=== PATIENT | male | born 1960 | race Caucasian/White ===

== ENCOUNTER 2018-09-08 15:55 | Emergency (ER) | payer OTHER ==
[2018-09-08 16:18] VITALS: BP 161/80; PULSE 76; TEMP 98.6; BMI 33.0
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
== END 2018-09-08 17:18 | disposition home or self-care (01) ==
LOC: JERFT 15:55
DX: S09.90XA Unspecified injury of head, initial encounter (principal); R42 Dizziness and giddiness; J45.909 Unspecified asthma, uncomplicated
CPT/HCPCS: 70450-TC; 99281-25

== ENCOUNTER 2019-07-19 12:42 | Emergency (ER) | payer OTHER ==
[2019-07-19 12:52] VITALS: BP 163/72; PULSE 68; TEMP 97.8; BMI 29.1
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
== END 2019-07-19 15:18 | disposition home or self-care (01) ==
LOC: JERFT 12:42
DX: S16.1XXA Strain of muscle, fascia and tendon at neck level, initial encounter (principal); S39.012A Strain of muscle, fascia and tendon of lower back, initial encounter; S09.8XXA Other specified injuries of head, initial encounter; V59.49XA Driver of pick-up truck or van injured in collision with other motor vehicles in traffic accident, initial encounter; Y92.414 Local residential or business street as the place of occurrence of the external cause; Y93.89 Activity, other specified; Y99.8 Other external cause status; Z86.59 Personal history of other mental and behavioral disorders
CPT/HCPCS: 70450-TC; 72125-TC; 72131-TC; 99281-25

== ENCOUNTER 2020-10-13 13:34 | Emergency (ER) | payer OTHER | END 2020-10-13 14:34 | disposition home or self-care (01) | LOC: JVIRT 13:34 | DX: R68.83 Chills (without fever) (principal); Z11.52 Encounter for screening for COVID-19 | CPT/HCPCS: C9803; G2012-GT; U0003 ==

== ENCOUNTER 2020-10-15 20:47 | Emergency (ER) | payer OTHER ==
[2020-10-15 21:08] VITALS: BP 143/69; PULSE 68; TEMP 98; BMI 30.1
[2020-10-15 22:44] LABS: BASO % 0.6 % (0-2.0); EOS % 1.4 % (0-4.5); HEMOGLOBIN 13.8 GM/dL (11.7-16.9); LYMPH % 21.6 % (8-40); MCH 29.8 pg (25.7-33.7); MCHC 33.6 g/dl (32.0-35.9); MEAN CELL VOLUME 88.7 fl (80-96); MEAN PLT VOLUME 8.2 fl (7.5-11.1); MONO % 7.1 % (3.8-10.2); NEUT % 69.3 % (42.8-82.8); PLATELET COUNT 176 K/MM3 (134-434); RBC 4.62 M/mm3 (4.00-5.60); WHITE BLOOD COUNT 6.8 K/mm3 (4.0-10.0)
[2020-10-15 23:03] LABS: CHLORIDE 105 mmol/L (98-107); SODIUM 137 mmol/L (136-145)
[2020-10-15 23:05] LABS: CALCIUM 8.8 mg/dL (8.5-10.1)
[2020-10-15 23:06] LABS: ANION GAP 6 MMOL/L (8-16); BLOOD UREA NITROGEN 24.6 mg/dL (7-18); CO2 27 mmol/L (21-32); GLUCOSE,RANDOM 132 mg/dL (74-106); MAGNESIUM 1.8 mg/dL (1.8-2.4)
[2020-10-15 23:09] LABS: CREATININE 1.2 mg/dL (0.55-1.3); SGOT/AST 20 U/L (15-37); SGPT/ALT 31 U/L (13-61)
[2020-10-15 23:10] LABS: BILIRUBIN,TOTAL 0.3 mg/dL (0.2-1)
[2020-10-15 23:12] LABS: ALK PHOS 71 U/L (45-117)
[2020-10-15] MEDS ORDERED: LACTATED RINGERS SOLUTION 1000 ML INFUS.BAG IV ONE (23:19)
[2020-10-16] MEDS ORDERED: LIDOCAINE 5% TOPICAL PATCH TP ONE (01:50)
[2020-10-16] MEDS ORDERED: LIDOCAINE 5% TOPICAL PATCH ONE (02:01)
[2020-10-16] MEDS ORDERED: LIDOCAINE PATCH REMOVAL MC ONE (14:00)
== END 2020-10-16 03:28 | disposition home or self-care (01) ==
LOC: JER 20:47
DX: R20.2 Paresthesia of skin (principal)
CPT/HCPCS: 36415; 70450-TC; 71046-TC-FY; 80053; 82550; 82553; 83735; 84443; 84484; 85025; 93005; 93010; 99285-25

== ENCOUNTER 2020-11-28 04:15 | Day surgery (SDC) | payer OTHER ==
[2020-11-27 11:00] VITALS: BMI 30.2
[2020-11-28 14:11] VITALS: BP 170/80; PULSE 54; TEMP 98.4
== END 2020-11-28 14:11 | disposition home or self-care (01) ==
LOC: JASU-ENDO 04:15
PROVIDERS: ATTEND Internal Medicine Gastroenterology
PROC: 0DBN8ZX Excision of Sigmoid Colon, Via Natural or Artificial Opening Endoscopic, Diagnostic (ICD-10-PCS; principal; 2020-11-28 11:00)
DX: Z86.010 Personal history of colon polyps (principal); D12.5 Benign neoplasm of sigmoid colon; K64.8 Other hemorrhoids
CPT/HCPCS: 88305-TC

== ENCOUNTER 2021-03-17 06:05 | Observation (INO) | payer OTHER ==
[2021-03-17 08:19] LABS: EOS % 2.9 % (0-4.5); HEMATOCRIT 40.7 % (35.4-49); HEMOGLOBIN 13.6 GM/dL (11.7-16.9); LYMPH % 39.8 % (8-40); MCH 29.1 pg (25.7-33.7); MCHC 33.5 g/dl (32.0-35.9); MEAN CELL VOLUME 86.9 fl (80-96); MEAN PLT VOLUME 8.2 fl (7.5-11.1); MONO % 9.7 % (3.8-10.2); NEUT % 46.6 % (42.8-82.8); PLATELET COUNT 144 10^3/uL (134-434); RBC 4.68 M/mm3 (4.00-5.60); RDW 13.2 % (11.9-15.9); WHITE BLOOD COUNT 5.7 K/mm3 (4.0-10.0)
[2021-03-17 08:29] LABS: INR 0.87 (0.83-1.09); PROTHROMBIN TIME (PATIENT) 10.8 SEC (9.7-13.0)
[2021-03-17 08:31] LABS: ACTIVATED PTT 28.7 SECONDS (25.2-36.5)
[2021-03-17 08:39] LABS: CHLORIDE 108 mmol/L (98-107); SODIUM 138 mmol/L (136-145)
[2021-03-17 08:41] LABS: CALCIUM 8.7 mg/dL (8.5-10.1)
[2021-03-17 08:42] LABS: ALBUMIN 3.7 g/dl (3.4-5.0); ANION GAP 6 MMOL/L (8-16); BLOOD UREA NITROGEN 15.6 mg/dL (7-18); CO2 25 mmol/L (21-32); GLUCOSE,RANDOM 86 mg/dL (74-106)
[2021-03-17 08:45] LABS: CHOLESTEROL 212 mg/dL (50-200); SGOT/AST 31 U/L (15-37); SGPT/ALT 36 U/L (13-61); TRIGLYCERIDES 132 mg/dL (0-150)
[2021-03-17 08:46] LABS: BILIRUBIN,TOTAL 0.4 mg/dL (0.2-1); LDL CHOLESTEROL (ONLY SJRH) 122 mg/dL (5-100)
[2021-03-17 08:47] LABS: HDL CHOLESTEROL 47 mg/dL (40-60); TOT PROT 6.6 g/dl (6.4-8.2)
[2021-03-17 08:48] LABS: ALK PHOS 56 U/L (45-117)
[2021-03-17] MEDS ORDERED: ASPIRIN 81 MG CHEWABLE TABLETS PO ONE (09:07)
[2021-03-17] MEDS ORDERED: ASPIRIN 81 MG CHEWABLE TABLETS ONE (09:56)
[2021-03-17] MEDS ORDERED: ASPIRIN COATED 81 MG TABLET.EC PO SCH (10:00)
[2021-03-17] MEDS ORDERED: ACETAMINOPHEN 325 MG TABLET (FP) PO PRN (11:53)
[2021-03-17] MEDS ORDERED: ENOXAPARIN NA (PORCINE) 40 MG/0.4 ML DISP.SYRIN SQ ONE (12:03)
[2021-03-17] MEDS: ENOXAPARIN NA (PORCINE) 40 MG/0.4 ML DISP.SYRIN SQ SCH (12:06)
[2021-03-17 15:06] VITALS: BMI 30.7
[2021-03-17] MEDS: ATORVASTATIN CA 10 MG TABLET (FP) PO SCH (21:03)
[2021-03-18 08:17] LABS: BASO % 0.6 % (0-2.0); HEMATOCRIT 42.7 % (35.4-49); HEMOGLOBIN 14.3 GM/dL (11.7-16.9); LYMPH % 33.1 % (8-40); MCH 29.4 pg (25.7-33.7); MCHC 33.6 g/dl (32.0-35.9); MEAN CELL VOLUME 87.6 fl (80-96); MEAN PLT VOLUME 7.9 fl (7.5-11.1); MONO % 8.9 % (3.8-10.2); NEUT % 54.4 % (42.8-82.8); PLATELET COUNT 150 10^3/uL (134-434); RBC 4.88 M/mm3 (4.00-5.60); RDW 13.1 % (11.9-15.9); WHITE BLOOD COUNT 5.7 K/mm3 (4.0-10.0)
[2021-03-18 08:37] LABS: CHLORIDE 109 mmol/L (98-107); SODIUM 141 mmol/L (136-145)
[2021-03-18 08:39] LABS: ANION GAP 5 MMOL/L (8-16); BLOOD UREA NITROGEN 14.6 mg/dL (7-18); CALCIUM 8.6 mg/dL (8.5-10.1); CO2 27 mmol/L (21-32); GLUCOSE,RANDOM 86 mg/dL (74-106); MAGNESIUM 2.3 mg/dL (1.8-2.4)
[2021-03-18 08:43] LABS: CREATININE 0.9 mg/dL (0.55-1.3); PHOSPHOROUS 3.7 mg/dL (2.5-4.9)
[2021-03-18] MEDS: ASPIRIN 325 MG ENTERIC COATED TABLET (FP) PO SCH (09:01)
[2021-03-18] MEDS: SERTRALINE HCL 50 MG TABLET (FP) PO SCH (09:01)
[2021-03-18] MEDS: ENOXAPARIN NA (PORCINE) 40 MG/0.4 ML DISP.SYRIN SQ SCH (09:01)
[2021-03-18] MEDS ORDERED: DOCUSATE SODIUM 100 MG CAPSULE (FP) PO ONE (09:20)
[2021-03-18] MEDS ORDERED: BISACODYL 5 MG TABLET.DR (FP) PO PRN (09:21)
[2021-03-18] MEDS ORDERED: CYCLOBENZAPRINE HCL 10 MG TABLET (FP) PO SCH (10:00)
[2021-03-18] MEDS: POLYETHYLENE GLYCOL 3350 119 GM BTL PO SCH ×2 (11:44→21:28)
[2021-03-18] MEDS ORDERED: DIVALPROEX NA *ER* EXTEND REL 500 MG TABLET.SA (FP) PO ONE (12:30)
[2021-03-18] MEDS: PRAMIPEXOLE DIHYDROCHLORIDE 0.125 MG TABLET PO SCH ×2 (13:54→21:28)
[2021-03-18] MEDS: HYDROCHLOROTHIAZIDE 12.5 MG CAPSULE (FP) PO SCH (13:55)
[2021-03-18] MEDS ORDERED: PT OWN MED DRAWER 7, Y5N ONE (21:10)
[2021-03-18] MEDS: ATORVASTATIN CA 10 MG TABLET (FP) PO SCH (21:28)
[2021-03-19] MEDS ORDERED: DIVALPROEX NA *ER* EXTEND REL 500 MG TABLET.SA (FP) PO SCH (10:00)
[2021-03-19] MEDS ORDERED: PT OWN MED DRAWER 7, Y5N ONE ×2 (10:02→10:49)
[2021-03-19] MEDS: ENOXAPARIN NA (PORCINE) 40 MG/0.4 ML DISP.SYRIN SQ SCH (10:20)
[2021-03-19] MEDS: HYDROCHLOROTHIAZIDE 12.5 MG CAPSULE (FP) PO SCH (10:20)
[2021-03-19] MEDS: ASPIRIN 325 MG ENTERIC COATED TABLET (FP) PO SCH (10:20)
[2021-03-19] MEDS: SERTRALINE HCL 50 MG TABLET (FP) PO SCH (10:20)
[2021-03-19] MEDS: PRAMIPEXOLE DIHYDROCHLORIDE 0.125 MG TABLET PO SCH (10:21)
[2021-03-19] MEDS: POLYETHYLENE GLYCOL 3350 119 GM BTL PO SCH (13:34)
[2021-03-19 18:51] VITALS: BP 134/71; PULSE 60; TEMP 98.3
[2021-03-20] MEDS ORDERED: PRAMIPEXOLE DIHYDROCHLORIDE 0.25 MG TABLET PO SCH (10:00)
== END 2021-03-19 20:05 | disposition home or self-care (01) ==
LOC: JER 06:05 → INTOOBSV 09:17 → JERBED 09:17 → UNDOADMOB 09:17 → JERBED 15:14 → J4S 15:14
PROVIDERS: ADMIT Internal Medicine; ATTEND Nurse Practitioner Acute Care
PROC: 3E023GC Introduction of Other Therapeutic Substance into Muscle, Percutaneous Approach (ICD-10-PCS; principal; 2021-03-18)
DX: R20.0 Anesthesia of skin (principal); R26.89 Other abnormalities of gait and mobility; F32.9 Major depressive disorder, single episode, unspecified; G43.909 Migraine, unspecified, not intractable, without status migrainosus; K59.00 Constipation, unspecified; E78.5 Hyperlipidemia, unspecified; G25.81 Restless legs syndrome; G47.63 Sleep related bruxism; I24.9 Acute ischemic heart disease, unspecified; I44.0 Atrioventricular block, first degree; R00.1 Bradycardia, unspecified; M54.5 Low back pain; G89.29 Other chronic pain; R42 Dizziness and giddiness; Z98.890 Other specified postprocedural states; Z20.822 Contact with and (suspected) exposure to COVID-19; Z87.820 Personal history of traumatic brain injury; Z29.9 Encounter for prophylactic measures, unspecified; Z88.8 Allergy status to other drugs, medicaments and biological substances; Q04.6 Congenital cerebral cysts
CPT/HCPCS: 36415; 70450-TC; 71045-TC-FY; 72148-TC; 80048; 80053; 80061; 82550; 82553; 83036; 83721; 83735; 84100; 84443; 84484; 85025; 85610; 85730; 93005; 93010; 93306-TC; 96372; 97116-GP; 97161-GP; 99285-25; C9803; G0378; U0003; U0005

== ENCOUNTER 2021-03-20 14:35 | Emergency (ER) | payer OTHER ==
[2021-03-20 14:52] VITALS: BP 132/78; PULSE 69; TEMP 98; BMI 30.6
[2021-03-20] MEDS ORDERED: KETOROLAC TROMETHAMINE 30 MG/1 ML VIAL IVPUSH ONE (15:49)
[2021-03-20] MEDS ORDERED: KETOROLAC TROMETHAMINE 15 MG/ML VIAL ONE (16:18)
[2021-03-20 17:16] LABS: BASO % 0.4 % (0-2.0); EOS % 0.9 % (0-4.5); HEMATOCRIT 42.7 % (35.4-49); HEMOGLOBIN 14.6 GM/dL (11.7-16.9); LYMPH % 26.2 % (8-40); MCH 29.5 pg (25.7-33.7); MCHC 34.3 g/dl (32.0-35.9); MEAN CELL VOLUME 86.1 fl (80-96); MEAN PLT VOLUME 7.8 fl (7.5-11.1); MONO % 8.5 % (3.8-10.2); PLATELET COUNT 164 10^3/uL (134-434); RBC 4.96 M/mm3 (4.00-5.60); RDW 13.3 % (11.9-15.9); WHITE BLOOD COUNT 7.2 K/mm3 (4.0-10.0)
[2021-03-20 17:21] LABS: INR 0.92 (0.83-1.09); PROTHROMBIN TIME (PATIENT) 11.2 SEC (9.7-13.0)
[2021-03-20 17:23] LABS: ACTIVATED PTT 31.1 SECONDS (25.2-36.5)
[2021-03-20 17:35] LABS: CHLORIDE 103 mmol/L (98-107); SODIUM 136 mmol/L (136-145)
[2021-03-20 17:37] LABS: CALCIUM 8.9 mg/dL (8.5-10.1)
[2021-03-20 17:38] LABS: ALBUMIN 4.1 g/dl (3.4-5.0); ANION GAP 6 MMOL/L (8-16); CO2 27 mmol/L (21-32); GLUCOSE,RANDOM 83 mg/dL (74-106); LIPASE 108 U/L (73-393)
[2021-03-20 17:41] LABS: CREATININE 1.1 mg/dL (0.55-1.3); SGOT/AST 60 U/L (15-37); SGPT/ALT 71 U/L (13-61)
[2021-03-20 17:42] LABS: BILIRUBIN,TOTAL 0.6 mg/dL (0.2-1); TOT PROT 7.4 g/dl (6.4-8.2)
[2021-03-20 17:43] LABS: ALK PHOS 71 U/L (45-117)
[2021-03-20 18:57] LABS: EPI CELLS 2 /uL (0-25.1); HYALINE CASTS 0 /uL (0-3.1); PH,URINE 6.5 (5.0-8.0); URINE APPEARANCE CLEAR; URINE BACTERIA 4 /uL (0-1359); URINE BILIRUBIN NEGATIVE (NEGATIVE); URINE COLOR YELLOW; URINE GLUCOSE (UA) NEGATIVE (NEGATIVE); URINE KETONE NEGATIVE (NEGATIVE); URINE LEUK ESTERASE TRACE (NEGATIVE); URINE NITRITE NEGATIVE (NEGATIVE); URINE PROTEIN NEGATIVE (NEGATIVE); URINE RBC 4 /uL (0-23.9); URINE WBC 6 /uL (0-25.8)
== END 2021-03-20 21:12 | disposition home or self-care (01) ==
LOC: JER 14:35
PROC: 3E0333Z Introduction of Anti-inflammatory into Peripheral Vein, Percutaneous Approach (ICD-10-PCS; principal; 2021-03-20)
DX: R10.11 Right upper quadrant pain (principal)
CPT/HCPCS: 36415; 74177-TC; 76705-TC; 80053; 81003; 82550; 83690; 84484; 85025; 85610; 85730; 87086; 93005; 93010; 99285-25; C9803; Q9967; U0003; U0005

== ENCOUNTER 2021-03-27 18:51 | Emergency (ER) | payer OTHER ==
[2021-03-27 19:04] VITALS: BP 140/80; PULSE 67; TEMP 97.8; BMI 30.7
== END 2021-03-27 23:28 | disposition home or self-care (01) ==
LOC: JER 18:51
DX: M79.605 Pain in left leg (principal); M79.604 Pain in right leg
CPT/HCPCS: 93970-TC; 99284-25